=== PATIENT | female | born 1990 | race Caucasian/White ===

== ENCOUNTER 2021-11-17 07:30 | Day surgery (SDC) | payer OTHER | END 2021-11-17 13:50 | disposition home or self-care (01) | LOC: CIR.AMB 07:30 | PROVIDERS: ATTEND Obstetrics & Gynecology | DX: O02.1 Missed abortion (principal); Z20.822 Contact with and (suspected) exposure to COVID-19 ==

== ENCOUNTER 2022-10-03 17:36 | Outpatient (CLI) | payer OTHER | END 2022-10-03 18:42 | disposition home or self-care (01) | LOC: NST 17:36 | PROVIDERS: ATTEND Obstetrics & Gynecology Maternal & Fetal Medicine | DX: Z34.83 Encounter for supervision of other normal pregnancy, third trimester (principal) ==

== ENCOUNTER 2022-10-06 16:23 | Inpatient (IN) | payer OTHER ==
[~2022-10-06] VITALS: Ht 162.6 cm; Wt 2.7 kg
[2022-10-06] MEDS ORDERED: PRENATABS RX T1 EACH PO (17:51)
== END 2022-10-11 10:46 | disposition home or self-care (01) | DRG 788 ==
LOC: NST 16:23 → LDR 17:05 → OB/GYN 10-08 21:50
PROVIDERS: Obstetrics & Gynecology; ADMIT Obstetrics & Gynecology Maternal & Fetal Medicine; ATTEND Obstetrics & Gynecology Maternal & Fetal Medicine
PROC: 4A1HXCZ Monitoring of Products of Conception, Cardiac Rate, External Approach (ICD-10-PCS; 2022-10-06)
PROC: 0UB00ZZ Excision of Right Ovary, Open Approach (ICD-10-PCS; 2022-10-08)
PROC: 10D00Z1 Extraction of Products of Conception, Low, Open Approach (ICD-10-PCS; principal; 2022-10-08 15:00)
DX: O16.4 Unspecified maternal hypertension, complicating childbirth (principal); O60.14X0 Preterm labor third trimester with preterm delivery third trimester, not applicable or unspecified; O34.83 Maternal care for other abnormalities of pelvic organs, third trimester; N83.291 Other ovarian cyst, right side; Z3A.36 36 weeks gestation of pregnancy; Z37.0 Single live birth; Z20.822 Contact with and (suspected) exposure to COVID-19

== ENCOUNTER 2022-12-26 20:45 | Emergency (ER) | payer OTHER ==
[~2022-12-26] VITALS: Ht 162.6 cm; Wt 114.3 kg
[~2022-12-26 20:45] MED LIST: PRENATABS RX T1 EACH PO
== END 2022-12-27 00:34 | disposition home or self-care (01) ==
LOC: ER 20:45
DX: M54.59 Other low back pain (principal); Z91.013 Allergy to seafood